=== PATIENT | female | born 1995 ===

== ENCOUNTER 2018-12-08 15:01 | Emergency (ER) | payer OTHER, MEDICAID ==
[2018-12-08] MEDS ORDERED: Naproxen 500 MG TAB PO STA (15:30)
[2018-12-08] MEDS ORDERED: Naproxen 500 MG TAB PO ONE (15:42)
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
[2018-12-08 16:51] VITALS: BP 118/70; PULSE 71; RESP 18; TEMP 98
[2018-12-08 19:30] VITALS: O2SAT 99
== END 2018-12-08 17:16 | disposition home or self-care (01) ==
LOC: H.ER 15:01
DX: M54.9 Dorsalgia, unspecified (principal); M25.562 Pain in left knee; M25.561 Pain in right knee; M25.519 Pain in unspecified shoulder; V79.59XA Passenger on bus injured in collision with other motor vehicles in traffic accident, initial encounter